=== PATIENT | male | born 1990 | race Two or more races ===

== ENCOUNTER 2020-06-14 11:26 | Emergency (ER) | payer SELFPAY ==
[~2020-06-14] VITALS: Ht 162.6 cm; Wt 74.0 kg
[2020-06-14 12:30] VITALS: BP 136/78
[2020-06-14 13:31] LABS: BILIRUBIN,URINE NEGATIVE (NEG); CLARITY,URINE CLEAR; COLOR,URINE YELLOW; NITRITE,URINE NEGATIVE (NEG); PROTEIN,URINE NEGATIVE (NEG-TRACE); UROBILINOGEN,URINE 0.2 mg/dL (0.2 mg/dL)
[2020-06-14 13:54] LABS: BACTERIA,URINE 0 /HPF (0-FEW); WBC,URINE >40 /HPF (0-4)
[2020-06-14] MEDS ORDERED: DOXY100T PO (14:36)
--- NOTE | 2020-06-14 14:36 | ED.ADGEN ---
Past Medical History Past Medical History: No Pertinent History Past Surgical History: No Surgical History Smoking Status: Current Some Day Smoker Alcohol Use: Occasionally Drug Use: None General Adult EDM: Chief Complaint: SORE THROAT HPI: HPI: Patient is a 29 year old male who presents to the emergency department, accompanied by his significant other, with complaints of a sore throat, white discharge from his penis, pain with urination, heart palpitations, and a lump behind his right nipple. Patient reports that his sore throat is worse in the mornings when he first wakes up, he states that he has had been clearing his throat frequently. Patient reports that the lump under his right nipple has been there for several months he denies any bleeding or discharge from the nipple. Patient states that he has had the pain with urination and discharge from his penis for the last 4 to 5 days. He denies any hematuria, increased urinary frequency, fever, cough, body aches, rash, nausea, vomiting, diarrhea, chest pain, wheezing, or ear pain. Patient reports he has had problems with heart palpitations for months, he reports that they are intermittent. He currently rates his pain a 5 out of 10 on the pain scale and states it is in his throat. He denies any alleviating factors, the pain is worse with swallowing. Patient was Russian-speaking only therefore the [email or web address] value analyst line was used to speak with the patient. Review of Systems: Review of Systems: Complete ROS is negative unless otherwise noted in HPI. Allergies: Allergies: Allergies Coded Allergies Type Severity Reaction Last Updated Verified No Known Drug Allergies 06/14/20 No Physical Exam: PE: See Above Constitutional: Well developed, well nourished, no acute distress, non-toxic appearance. [] HENT: Normocephalic, atraumatic, bilateral external ears normal, nose congested, mild erythema posterior pharynx with cobblestone appearance, clear postnasal drainage is present Eyes: PERRLA, EOMI, conjunctiva normal, no discharge. [] Neck: Normal range of motion, supple, nontender, no stridor. [] Cardiovascular:Heart rate regular rhythm, nontender Lungs & Thorax: Respirations even and unlabored, no retractions, no respiratory distress, no wheezing; there is a 1 cm diameter soft, movable, lump behind the right nipple, no nipple discharge, no erythema, no warmth Abdomen: soft, no tenderness Skin: Warm, dry, no erythema, no rash. [] Extremities: No cyanosis, ROM intact, no edema. [] Neurologic: Alert and oriented X 3, normal motor, normal sensory, no focal deficits noted. [] Psychologic: Affect normal, judgement normal, mood normal. [] Current Patient Data: Labs: Laboratory Tests Test 06/14/20 12:58 06/14/20 14:15 Urine Collection Type Unknown Urine Color Yellow Urine Clarity Clear Urine pH 7.0 (<5.0-8.0) Urine Specific Beccaria 1.015 (1.000-1.030) Urine Protein Negative mg/dL (NEG-TRACE) Urine Glucose (UA) Negative mg/dL (NEG) Urine Ketones (Stick) Negative mg/dL (NEG) Urine Blood Small (NEG) Urine Nitrite Negative (NEG) Urine Bilirubin Negative (NEG) Urine Urobilinogen Dipstick 0.2 mg/dL (0.2 mg/dL) Urine Leukocyte Esterase Large (NEG) Urine RBC 6-10 /HPF (0-2) Urine WBC >40 /HPF (0-4) Urine Bacteria 0 /HPF (0-FEW) Group A Streptococcus Rapid Negative (NEGATIVE) Microbiology 06/14/20 Urine Culture - Final, Complete Vital Signs: Vital Signs Date Time Temp Pulse Resp B/P (MAP) Pulse Ox O2 Delivery O2 Flow Rate FiO2 06/14/20 12:30 98.3 81 12 136/78 (97) 98 98.3 06/14/20 12:13 Room Air EKG: EK-sinus rhythm, rate 65, no STEMI, read by Dr. Wright [] Heart Score: C/O Chest Pain: No Risk Scores: Score 0 - 3: 2.5% MACE over next 6 weeks - Discharge Home Score 4 - 6: 20.3% MACE over next 6 weeks - Admit for Clinical Observation Score 7 - 10: 72.7% MACE over next 6 weeks - Early Invasive Strategies Radiology/Procedures: Radiology/Procedures: Rapid strep test is negative [] Course & Med Decision Making: Course & Med Decision Making Pertinent Labs and Imaging studies reviewed. (See chart for details) Patient is a 29-year-old male who presented to emergency department with multiple complaints. His rapid strep test was negative. I advised the patient that he is likely suffering from allergies and encourage a daily antihistamine. I advised the patient that he needs to follow-up with her primary care doctor for further evaluation of the lump behind his nipple. EKG was normal sinus rhythm, I encouraged the patient to stop drinking caffeine, limit alcohol use, and stop smoking. He had no chest pain and no risk factors other than smoking. Urinalysis was concerning for a great amount of white blood cells but no bacteria. Patient was treated prophylactically with 500 mg of IM Rocephin, and given a prescription for doxycycline. Patient was instructed to avoid having intercourse until the results of gonorrhea and chlamydia testing are available, patient was notified that these results would not be available for 48 hours. If one or both of these tests is positive, patient needs to refrain from intercourse for approximately 1 week following the treatment of any current partners. Patient verbalized an understanding of home care, medications, follow-up, and return to ED instructions and was in agreement with the plan of care. [] Dragon Disclaimer: Dragon Disclaimer: This electronic medical record was generated, in whole or in part, using a voice recognition dictation system. Departure Departure Impression: Primary Impression: Urethritis Additional Impressions: Palpitations Lump in central portion of right breast Contact with and (suspected) exposure to infections with a predominantly sexual mode of transmission Disposition: 01 DC HOME SELF CARE/HOMELESS Condition: STABLE Referrals: NO PCP (PCP) Patient Instructions: Palpitations, [id number], Sexually Transmitted Disease, [id number], Urethritis, Adult Additional Instructions: Fill the prescription(s) and use as directed. Recommend that you take 10 mg of generic Zyrtec (cetirizine) or Claritin at bedtime and use over the counter Flonase (fluticasone) nasal spray 2 sprays each nostril once daily in the morning. You may take Tylenol or ibuprofen as needed for pain/fever. Increase clear fluids. Avoid triggers such as smoke, fragrance, dust, and pollen. I also recommend that you go to your local health department for comprehensive sexually transmitted disease testing. You have been treated for a suspected gonorrhea and chlamydia. Avoid having intercourse until the results of gonorrhea and chlamydia testing are available, these results will not be available for 48 hours. If one or both of these tests is positive, you need to refrain from intercourse for approximately 1 week following the treatment of any current partners. Follow-up with your primary care doctor for further evaluation of the lump in your right breast. Follow-up with your primary care doctor this week, return to ER symptoms worsen or fever develops. [facility] [address] [place] [address] [facility] [address] [place] [address] [facility] [address] [facility] [place] [address] [facility] [address] [place] [address] [facility] [address] [place] [address] [facility] [address] [place] [address] [facility] [address] [place] [address] [employer] [facility] [address] [place] [address] [facility] [address] [place] [address] [facility] [address] [place] [address] Scripts Doxycycline Hyclate (DOXYCYCLINE HYCLATE) 100 Mg Tablet 1 TAB PO BID, #14 TAB 0 Refills Prov: ROSALINA RODRIGUEZ APRN 06/14/20 Problem Qualifiers ROSALINA RODRIGUEZ APRN Jun 14, 2020 14:36
--- NOTE | 2020-06-14 19:11 | EKG ---
[facility] [address] [place] [address] Test Date: 2020-06-14 Test Time: 13:06:03 Pat Name: DARREN ESPINOZA Department: Room: Gender: Roving Changer: : 1990 Requested By: ROSALINA RODRIGUEZ Order Number: [id number] Reading MD: Measurements Intervals [place] Rate: 65 P: 48 MT: 132 QRS: 38 QRSD: 100 T: 4 QT: 386 QTc: 402 Interpretive Statements SINUS RHYTHM NORMAL ECG RI6.02 No previous ECG available for comparison
--- NOTE | 2020-06-16 12:07 | VNOTE ---
CALL BACK NOTE CALL BACK Microbiology 06/14/20 Nose/Throat Culture - Preliminary, Resulted 06/14/20 Urine Culture - Final, Complete Patient is positive for gonorrhea, provider notes states patient was given 500 mg of Rocephin IM in the ED unfortunately there is no [facility] documentation nursing administration of the medicine. He was sent home on doxycycline. I attempted to call patient, no voicemail. HAYDER WOOTEN APRN Jun 16, 2020 12:07
== END 2020-06-14 15:15 | disposition home or self-care (01) ==
LOC: ER 11:26 → EDSEX 11:26 → ER 15:15
DX: N34.2 Other urethritis (principal); R00.2 Palpitations; N63.0 Unspecified lump in unspecified breast; Z20.2 Contact with and (suspected) exposure to infections with a predominantly sexual mode of transmission; Z87.891 Personal history of nicotine dependence
CPT/HCPCS: 81001; 87070; 87086; 87491; 87591; 87880; 93005; 99284